=== PATIENT | female | born 1940 | race Caucasian/White ===

== ENCOUNTER → 2020-02-11 | Outpatient (CLI) | payer MEDICARE ==
[2020-02-11 17:37] LABS: ABSOLUTE BASOPHILS # (AUTO) 0.1 10^3/uL (0.0-0.2); ABSOLUTE EOSINOPHILS # (AUTO) 0.2 10^3/uL (0.0-0.6); ABSOLUTE LYMPHOCYTES (AUTO) 3.1 10^3/uL (0.5-4.7); ABSOLUTE MONOCYTES (AUTO) 0.7 10^3/uL (0.1-1.4); ABSOLUTE NEUT (AUTO) 5.4 10^3/uL (1.7-8.2); BASOPHILS % (AUTO) 0.7 % (0-2); EOSINOPHILS % (AUTO) 2.6 % (0-6); HEMOGLOBIN 12.9 g/dL (12.0-15.5); LYMPHOCYTES % (AUTO) 32.2 % (13-45); MEAN CORPUSCULAR HEMOGLOBIN 30.8 pg (27.0-33.4); MEAN CORPUSCULAR VOLUME 91 fl (80-97); MONOCYTES % (AUTO) 7.9 % (3-13); PLATELET COUNT 234 10^3/uL (150-450); RED BLOOD COUNT 4.18 10^6/uL (3.72-5.28); RED CELL DISTRIBUTION WIDTH 13.8 % (11.5-14.0); SEGMENTED NEUTROPHILS % (AUTO) 56.6 % (42-78); TOTAL CELLS COUNTED % (AUTO) 100 %; WHITE BLOOD COUNT 9.5 10^3/uL (4.0-10.5)
[2020-02-11 17:39] LABS: APPEARANCE,URINE SLIGHTLY-CLOUDY; BILIRUBIN,URINE NEGATIVE (NEGATIVE); COLOR,URINE YELLOW; GLUCOSE, URINE NEGATIVE (NEGATIVE); KETONES,URINE NEGATIVE (NEGATIVE); LEUKOCYTE ESTERASE,URINE TRACE (NEGATIVE); NITRITE,URINE NEGATIVE (NEGATIVE); PROTEIN,URINE NEGATIVE (NEGATIVE); URINE SPECIFIC GRAVITY 1.026
[2020-02-11 18:02] LABS: ALBUMIN 4.5 g/dL (3.5-5.0); ANION GAP 14 (5-19); BLOOD UREA NITROGEN 31 mg/dL (7-20); C-REACTIVE PROTEIN 9.5 mg/L (<10.0); CALCIUM 10.3 mg/dL (8.4-10.2); CARBON DIOXIDE 25 mmol/L (22-30); CHLORIDE 103 mmol/L (98-107); GLUCOSE 89 mg/dL (75-110); POTASSIUM 4.5 mmol/L (3.6-5.0)
[2020-02-11 18:27] LABS: ERYTHROCYTE SEDIMENTATION RATE 26 mm/hr (0-30)
--- NOTE | 2020-02-12 00:53 | EKG REPORT ---
SEVERITY:- NORMAL ECG - SINUS RHYTHM : Confirmed by: Gabriele Quispe 12-Feb-2020 00:52:55
--- NOTE | 2020-02-12 08:44 | RADIOLOGY REPORT (SQ) ---
EXAM DESCRIPTION: CHEST PA/LATERAL IMAGES COMPLETED DATE/TIME: 02/11/2020 5:16 pm REASON FOR STUDY: PRE-OP COMPARISON: None. EXAM PARAMETERS: NUMBER OF VIEWS: two views TECHNIQUE: Digital Frontal and Lateral radiographic views of the chest acquired. RADIATION DOSE: NA LIMITATIONS: none FINDINGS: LUNGS AND PLEURA: Minimal left basilar atelectasis. Slight elevation of the right hemidia phragm. No consolidation or effusions. MEDIASTINUM AND HILAR STRUCTURES: No masses or contour abnormalities. HEART AND VASCULAR STRUCTURES: Heart normal size. No evidence for failure. BONES: No acute findings. HARDWARE: None in the chest. OTHER: No other significant finding. IMPRESSION: Minimal left basilar atelectasis. Stable elevation of the right hemidiaphragm. TECHNICAL DOCUMENTATION: JOB ID: [id number] 2010 [employer]- All Rights Reserved Reading location - IP/workstation name: [email or web address]
== END ==
LOC: OD 16:14
PROVIDERS: ATTEND Orthopaedic Surgery
DX: Z01.810 Encounter for preprocedural cardiovascular examination (principal); Z01.811 Encounter for preprocedural respiratory examination; Z01.812 Encounter for preprocedural laboratory examination
CPT/HCPCS: 36415; 71046; 80048; 81001; 82040; 82306; 83036; 85025; 85652; 86140; 93005; 93010

== ENCOUNTER 2020-03-05 05:20 | Day surgery (SDC) | payer MEDICARE ==
[~2020-03-05 05:20] MED LIST: ACETAMINOPHEN 325 MG TABLET PO PRN; CEFAZOLIN 2 GM/D5W RTU 2 GM/50 ML RTUPB IV PRN; CELECOXIB 200 MG CAPSULE PO PRN; GABAPENTIN 100 MG CAPSULE PO PRN; LACTATED RINGERS 1000 ML IV PRN; LIDOCAINE 0.5% INJ-PF (5 MG/ML) 50 ML SDV SUBCUT PRN; OXYCODONE HCL SR 10 MG TABLET PO PRN; SCOPOLAMINE HYDROBROMIDE 1.5 MG PATCH.TD72 TD PRN; TRAMADOL HCL 50 MG TABLET PO PRN; TRANEXAMIC ACID INJ/PF 1,000 MG/10 ML SDV IV PRN; VANCOMYCIN HCL 1,000 MG in DEXTROSE 5%-WATER 250 ML IV PRN
[2020-03-05] MEDS ORDERED: CEFAZOLIN 2 GM/D5W RTU 2 GM/50 ML RTUPB IV ONE (05:21)
[2020-03-05] MEDS ORDERED: OXYCODONE HCL SR 10 MG TABLET PO ONE (05:21)
[2020-03-05] MEDS ORDERED: CELECOXIB 200 MG CAPSULE ONE (05:21)
[2020-03-05] MEDS ORDERED: TRAMADOL HCL 50 MG TABLET ONE (05:21)
[2020-03-05] MEDS ORDERED: GABAPENTIN 100 MG CAPSULE ONE (05:21)
[2020-03-05] MEDS ORDERED: ACETAMINOPHEN 325 MG TABLET ONE (05:21)
[2020-03-05] MEDS ORDERED: MIDAZOLAM 2 MG/2 ML INJ ONE (07:00)
[2020-03-05] MEDS ORDERED: ONDANSETRON HCL INJ/PF 4 MG/2 ML SDV ONE ×2 (07:00→07:06)
[2020-03-05] MEDS ORDERED: PROPOFOL INJ 200 MG/20 ML VIAL IV ONE (07:00)
[2020-03-05] MEDS ORDERED: LIDOCAINE 2% INJ-PF (20 MG/ML) 10 ML AMPUL ONE (07:00)
[2020-03-05] MEDS ORDERED: FENTANYL CITRATE INJ/PF 100 MCG/2 ML AMPUL ONE (07:00)
[2020-03-05] MEDS ORDERED: BUPIVACAINE HCL 0.25 % INJ/PF (2.5 MG/1 ML) 30 ML VIAL ONE (07:06)
[2020-03-05] MEDS ORDERED: LIDOCAINE 1% INJ-PF (10 MG/ML) 30 ML SDV ONE (07:06)
[2020-03-05] MEDS ORDERED: VANCOMYCIN HCL INJ 1000 MG VIAL ONE (07:06)
[2020-03-05] MEDS ORDERED: KETOROLAC TROMETHAMINE INJ/PF 30 MG/1 ML SDV ONE (07:06)
[2020-03-05] MEDS ORDERED: TRANEXAMIC ACID INJ/PF 1,000 MG/10 ML SDV ONE (07:12)
[2020-03-05] MEDS ORDERED: ZOLPIDEM TARTRATE 5 MG TABLET PO PRN (07:38)
[2020-03-05] MEDS ORDERED: DOCUSATE SODIUM 100 MG CAPSULE PO PRN (07:38)
[2020-03-05] MEDS ORDERED: ONDANSETRON 4 MG TAB.RAPDIS PO PRN (07:38)
[2020-03-05] MEDS ORDERED: TRANEXAMIC ACID INJ/PF 1,000 MG/10 ML SDV IV ONE (07:38)
[2020-03-05] MEDS ORDERED: DEXAMETHASONE SOD PHOS INJ 10 MG/1 ML VIAL IV ONE (07:38)
[2020-03-05] MEDS ORDERED: TRAMADOL HCL 50 MG TABLET PO PRN (07:38)
[2020-03-05] MEDS ORDERED: DIPHENHYDRAMINE HCL 25 MG CAPSULE PO PRN (07:38)
[2020-03-05] MEDS ORDERED: NORMAL SALINE 1000 ML 1,000 ML IV ONE (07:38)
[2020-03-05] MEDS ORDERED: OXYCODONE HCL IR 5 MG TABLET PO PRN ×4 (07:38)
[2020-03-05] MEDS ORDERED: MORPHINE SULFATE 10 MG/ML INJ IV PRN ×3 (07:38→08:20)
[2020-03-05] MEDS ORDERED: PANTOPRAZOLE SODIUM 20 MG TABLET.DR PO ONE (07:38)
[2020-03-05] MEDS ORDERED: OXYCODONE-ACETAMINOPHEN 5-325 MG TABLET PO PRN ×2 (08:20)
[2020-03-05] MEDS ORDERED: MEPERIDINE HCL/PF INJ 25 MG/1 ML DISP.SYRIN IV PRN (08:20)
[2020-03-05] MEDS ORDERED: FENTANYL CITRATE INJ/PF 100 MCG/2 ML AMPUL IV PRN ×3 (08:20)
[2020-03-05] MEDS ORDERED: PROMETHAZINE HCL INJ 25 MG/1 ML VIAL IV PRN (08:20)
[2020-03-05] MEDS: FENTANYL CITRATE INJ/PF 100 MCG/2 ML AMPUL ONE ×4 (09:54→10:09)
--- NOTE | 2020-03-05 09:54 | Operative Report ---
Operative Report DATE OF SURGERY: 03/05/20 PREOPERATIVE DIAGNOSIS: Right hip severe primary osteoarthritis POSTOPERATIVE DIAGNOSIS: Right hip severe primary osteoarthritis OPERATION: Right total hip arthroplasty SURGEON: ANGEL PASTRANA JR ANESTHESIA: Spinal COMPLICATIONS: None ESTIMATED BLOOD LOSS: 150 cc PROCEDURE: Implants: Gilmer Accolade 2 size 3 femoral stem with 127 offset, a PSL size 48 cup, and a standard liner, a +2.5 neck length 36 mm ceramic head OPERATIVE PROCEDURE: Patient was brought to the operating room on and underwent spinal anesthesia. 2 grams of Ancef and 1 g of vancomycin was given. After proper anesthesia was obtained, patient was positioned, padded, prepped, and draped in the usual sterile fashion on the operating room table. Appropriate time out was performed. An anterior approach to the hip was undertaken with meticulous hemostasis through the deep interval. A capsulectomy was performed followed by exposure of the femoral neck. The femoral neck was cut in line with the femoral broach and the femoral head was removed. The acetabulum was then exposed with three retractors in an atraumatic fashion. Soft tissue and osteophytes were removed. Medialization reaming was performed followed by reaming of the acetabulum. Wound was irrigated with dilute betadyne solution and the 48 mm acetabulum was impacted into correct position and stability checked by manipulating the impaction handle which rocked the pelvis. A standard liner was impacted into the shell with good stability. Potential imping ing osteophytes were removed. Attention was then directed toward the femur, which was exposed with two retractors in an atraumatic fashion. A bone hook was placed to carefully perform releases along the superior capsule until the femur was safely delivered through the wound. A box shook patcher was utilized followed by lateralization rasping and then broaching up to a stable, filled proximal femur. With a 127 offset neck and a standard head, stability was good in flexion and extension with near equal leg lengths. The final size 3 stem was impacted into a copiously irrigated femoral canal. The final size +2.5 x 36 mm ceramic head was impacted on a clean dry femoral taper. The hip was irrigated and reduced, further irrigation with antibiotic solution, betadine solution, then antibiotic solution. Bleeders were coagulated with bovie cautery. The fascia was then closed with number 2 barbed PDS; the subcutaneous tissue closed with 2-0 monocryl and then a running 3-0 monocryl subcuticular. A silver dressing was then applied. All needle sponge and instrument counts were correct. Patient was awakened from sedation anesthesia and taken to recovery room in stable condition.
--- NOTE | 2020-03-05 10:43 | RADIOLOGY REPORT (SQ) ---
EXAM DESCRIPTION: HIP RIGHT AP/LATERAL IMAGES COMPLETED DATE/TIME: 03/05/2020 10:32 am REASON FOR STUDY: check post op placement M16.11 UNILATERAL PRIMARY OSTEOARTHRITIS, RIGHT HIP COMPARISON: 11/12/2019. NUMBER OF VIEWS: One view TECHNIQUE: Digital radiographic images of the pelvis post-procedure LIMITATIONS: None. FINDINGS: BONES: No worrisome or unexpected findings post-procedure. DEVICE: Bi-polar prothesis. Device appears in appropriate location. SOFT TISSUES: No worrisome findings. Expected postoperative soft tissue changes. IMPRESSION: SATISFACTORY POSTOPERATIVE PELVIS. TECHNICAL DOCUMENTATION: JOB ID: [id number] 2010 [employer]- All Rights Reserved Reading location - IP/workstation name: [email or web address]
--- NOTE | 2020-03-05 13:23 | RADIOLOGY REPORT (SQ) ---
EXAM DESCRIPTION: HIP IN OPERATING RM IMAGES COMPLETED DATE/TIME: 03/05/2020 12:40 pm REASON FOR STUDY: RIGHT HIP ARTHROPLASTY ASSISTED WITH FLUORO IN OR M16.11 UNILATERAL PRIMARY OSTEO ARTHRITIS, RIGHT HIP COMPARISON: 11/12/2019. FLUOROSCOPY TIME: Less than 0.1 minute. 1 images saved to PACS. TECHNIQUE: Intra-operative images acquired during surgical procedure to evaluate progress. NUMBER OF IMAGES: 1 image. LIMITATIONS: None. FINDINGS: Image of the hip acquired during the procedure. IMPRESSION: IMAGE(S) OBTAINED DURING PROCEDURE. COMMENT: Quality ID [id number]: Final reports for procedures using fluoroscopy that document radiation exp osure indices, or exposure time and number of fluorographic images (if radiation exposure indices are not available) Please consult full operative report of the attending physician for description of the procedure. TECHNICAL DOCUMENTATION: JOB ID: [id number] 2010 [employer]- All Rights Reserved Reading location - IP/workstation name: [email or web address]
[2020-03-05] MEDS ORDERED: CEFAZOLIN 2 GM/D5W RTU 2 GM/50 ML RTUPB IV SCH (14:00)
[2020-03-05] MEDS ORDERED: LIDOCAINE 2% INJ-PF (20 MG/ML) 2 ML AMPUL ONE (14:33)
[2020-03-05] MEDS ORDERED: PHENYLEPHRINE HCL INJ/PF 10 MG/1 ML SDV ONE (14:33)
[2020-03-05] MEDS: CEFAZOLIN SODIUM 2 GM in DEXTROSE 5%-WATER 100 ML IV SCH ×2 (16:34→22:22)
[2020-03-05] MEDS: ACETAMINOPHEN 325 MG TABLET PO SCH ×2 (16:34→17:21)
[2020-03-05] MEDS: KETOROLAC TROMETHAMINE INJ/PF 30 MG/1 ML SDV IV SCH ×2 (16:35→22:23)
[2020-03-05] MEDS: GABAPENTIN 100 MG CAPSULE PO SCH (17:21)
[2020-03-05] MEDS ORDERED: ACETAMINOPHEN 325 MG TABLET PO ONE (20:00)
[2020-03-05] MEDS ORDERED: SIMVASTATIN 40 MG TABLET PO SCH (22:00)
[2020-03-06] MEDS: ACETAMINOPHEN 325 MG TABLET PO SCH ×2 (01:20→06:24)
[2020-03-06] MEDS: GABAPENTIN 100 MG CAPSULE PO SCH (06:25)
[2020-03-06] MEDS: KETOROLAC TROMETHAMINE INJ/PF 30 MG/1 ML SDV IV SCH (06:25)
--- NOTE | 2020-03-06 07:41 | PDOC PROGRESS REPORT ---
Subjective Progress Note for:: 03/06/20 Subjective:: Patient seen and examined. No acute events overnight. Has been able to ambulate well with therapy and is hopeful for discharge home today. Reason For Visit: M16.11 UNILATERAL PRIMARY OSTEOARTHRITIS, RIGHT HI Physical Exam Vital Signs: Temp Pulse Resp BP Pulse Ox 97.4 F 70 18 118/50 L 96 03/06/20 03:27 03/06/20 03:27 03/06/20 03:27 03/06/20 03:27 03/06/20 03:27 Intake & Output 03/05/20 03/06/20 03/07/20 06:59 06:59 06:59 Intake Total 0 2470 Output Total 100 Balance 0 2370 Weight 74.84 kg 78.4 kg Physical Exam: No acute distress alert and oriented x3 Right lower extremity -Pulses 2+ distally -Compartments soft -Sensation grossly intact to L3-4-5 S1 -Motor grossly intact to EHL TA gastroc and quad Wound clean dry and intact Results Laboratory Results: 03/05/20 05:55 Impressions: Hip X-Ray 03/05/20 00:00 IMPRESSION: IMAGE(S) OBTAINED DURING PROCEDURE. Hip/Pelvis X-Ray 03/05/20 00:00 IMPRESSION: SATISFACTORY POSTOPERATIVE PELVIS. Assessment & Plan - Diagnosis (1) Status post total hip replacement, right Is this a current diagnosis for this admission?: Yes Plan: - 2 doses of Ancef postoperatively q 8 hours to complete 24 hours perioperatively -Weightbearing as tolerated, no precautions, encourage out of bed JESSICA for ADL training - PT/OT -aspirin 325 daily for DVT prophylaxis for 6 weeks -multimodal pain management to avoid excessive narcotics, including gabapentin, tramadol, Toradol, acetaminophen. -Dressing should not be removed for 7 to 10 days until seen in the office -May shower with the dressing intact, if it starts to come off she should not get the incision wet. -Follow-up with Dr. Molina Collins, orthopedic surgeon at [facility] for surgery, in 10 days. Call for an appointment. . [address], [place] [address] - Time Time Spent with patient: Less than 15 minutes
--- NOTE | 2020-03-06 07:43 | Discharge Summary ---
Discharge Summary (SDC) - Discharge Final Diagnosis: Status post right total hip arthroplasty Date of Surgery: 03/05/20 Discharge Date: 03/06/20 Condition: Stable Treatment or Instructions: Full details of postoperative instructions have been provided to the patient in the clinic. Additionally they should maintain their bandage in place for 10 days, and then changed to a dry dressing. They can take showers with this occlusive dressing but any further dressing should also be occlusive. No showers with the wound unprotected until cleared by me in the clinic. If the bandage falls off early or become saturated they can change as needed to another occlusive dressing. Follow-up with Dr. Molina Pastrana, orthopedic surgeon at [facility] for surgery, in 10 days. Call for an appointment. . [address], [place] [address] Referrals: MOLINA PASTRANA JR, DO [ACTIVE PROVISIONAL STAFF] - 03/17/20 1:40 pm Respiratory Treatments at Home: Deep Breathing/Coughing Discharge Activity: Activity As Tolerated, No Driving, Keep Legs Elevated, Slowly Increase Activity, No tub bath, Walk Frequently Activities Provided by Home Health Agency: Physical Therapy Adaptive Devices on Discharge: Rolling Walker, Bedside Commode Report the Following to Your Physician Immediately: Shortness of Breath, Fever over 101 Degrees, Unusual Bleeding, Drainage-Yellow
[2020-03-06 08:20] VITALS: BP 104/39
[2020-03-06] MEDS ORDERED: POLYETHYLENE GLYCOL 3350 POWDER 17 GM/1 PACKET PO SCH (10:00)
[2020-03-06] MEDS ORDERED: POTASSIUM CHLORIDE 10 MEQ TABLET.ER PO SCH (10:00)
[2020-03-06] MEDS ORDERED: ASPIRIN 325 MG TABLET PO SCH (10:00)
[2020-03-06] MEDS ORDERED: CHLORTHALIDONE 25 MG TABLET PO SCH (10:00)
[2020-03-06] MEDS ORDERED: CELECOXIB 200 MG CAPSULE PO SCH (10:00)
== END 2020-03-06 10:48 | disposition home or self-care (01) ==
LOC: OROUT 05:20 → 4S 15:25 → OROUT 03-06 10:48
PROVIDERS: ATTEND Orthopaedic Surgery
DX: M16.11 Unilateral primary osteoarthritis, right hip (principal); I10 Essential (primary) hypertension; K21.9 Gastro-esophageal reflux disease without esophagitis; Z79.899 Other long term (current) drug therapy; Z03.818 Encounter for observation for suspected exposure to other biological agents ruled out
CPT/HCPCS: 86900; 86901; 36415; 86850; 84132; 73502; 73501; 97530 ×3; 97110 ×2; 97116 ×2; 97163; 97535 ×2; 97166; 01214; 27130; C1776 ×3; U0003; A9270 ×10; J0690 ×2; J3010; J3490 ×4; J1885 ×2; J2370; J2405; J7060 ×2; J2704; J3370; C9803; 87635; J2250